=== PATIENT | male | born 1945 | race Caucasian/White ===

== ENCOUNTER 2019-03-26 13:23 | Day surgery (SDC) | payer OTHER, SELFPAY ==
[2019-03-26 14:17] VITALS: BMI 27.4
[2019-03-26 14:24] VITALS: BP 157/82; PULSE 66; RESP 15; TEMP 36.7; O2SAT 96
[2019-03-26] MEDS: LACTATED RINGERS 1,000 ML 100 ML IV (14:50)
--- NOTE | 2019-03-26 15:39 | PM.PREOP ---
Pre-operative Note Interval Note History & Physical reviewed/Exam performed by Physician: Yes Changes to H&P: No H&P completed within 30 days and has changed as indicated here:: History and physical exam on file.
[2019-03-26] MEDS: CEFAZOLIN 2 GM/100 ML FROZ.PIGGY IV (15:59)
--- NOTE | 2019-03-26 16:12 | SUR.OPER ---
Lithotomy on padded OR bed, head on pillow, arms secured on padded arm boards at <90 degrees abduction. Legs secured in padded yellow fins stirrups.
[2019-03-26] MEDS: BELLADONNA/OPIUM SUPPOSITORIES 1 EACH PR (16:17)
--- NOTE | 2019-03-26 16:32 | PM.OP.1 ---
Operative Date/Time/Diagnoses Date of procedure: 03/26/19 Time of procedure: 16:32 Pre-op diagnosis: Bladder neck contracture Urinary retention History of UTI Post-op diagnosis: same Procedure & Clinicians Procedure: Cystoscopy Transurethral resection bladder neck contracture Same procedure as scheduled: Yes Indications: 1. Bladder neck contracture 2. Urinary retention 3. History of UTI Surgeon: David Fortune Click Yes if Unassisted: Yes Anesthesia Type: General Operative Notes Closure Type: not applicable Specimen(s): none sent Applied: catheter (20F Ordonez.) Estimated Blood Loss (mL): 1 Blood products transfused: none Tourniquet time (min): 0 Complications: none Post-operative Condition: stable Disposition: PACU Plan for aftercare: Discharge home
[2019-03-26 16:34] VITALS: BP 127/72; PULSE 63; RESP 11; TEMP 36.4; O2SAT 98
[2019-03-26 16:37] VITALS: BP 123/71; PULSE 68; RESP 14; O2SAT 98
[2019-03-26 16:41] VITALS: BP 131/79; PULSE 65; RESP 12; O2SAT 97
[2019-03-26 16:52] VITALS: BP 138/81; PULSE 61; RESP 9; O2SAT 97
[2019-03-26 17:34] VITALS: BP 127/64; PULSE 72; RESP 16; TEMP 36.2; O2SAT 98
== END 2019-03-26 17:35 | disposition home or self-care (01) ==
PROVIDERS: PCP Internal Medicine; Visit Provider Specialist
PROC: 0TBC8ZZ Excision of Bladder Neck, Via Natural or Artificial Opening Endoscopic (ICD-10-PCS; CPT 52500; principal; 2019-03-26 14:45)
DX: N32.0 Bladder-neck obstruction (principal); R33.9 Retention of urine, unspecified; Z87.440 Personal history of urinary (tract) infections
CPT/HCPCS: 52500; 87086; J0690; J2704; J3010